=== PATIENT | female | born 1970 | race Caucasian/White ===

== ENCOUNTER 2021-01-09 06:07 | Day surgery (SDC) | payer OTHER ==
[~2021-01-09 06:07] MED LIST: LEVOTHYROXINE25 MCG PO
== END 2021-01-09 11:15 | disposition home or self-care (01) ==
LOC: CIR.AMB 06:07
PROVIDERS: ATTEND Otolaryngology Otology & Neurotology
DX: H90.12 Conductive hearing loss, unilateral, left ear, with unrestricted hearing on the contralateral side (principal); Z20.822 Contact with and (suspected) exposure to COVID-19